=== PATIENT | male | born 1950 | race Caucasian/White ===

== ENCOUNTER 2022-04-21 09:34 | Inpatient (IN) ==
[2022-04-21] MEDS ORDERED: SODIUM CHLORIDE 0.9% 1,000 ML IV STA (10:23)
[2022-04-21 10:49] LABS: Basophils % 0.4 % (0.0-0.8); Eosinophils # 0.3 10*3/uL (0.0-0.87); Eosinophils % 4.1 % (0.00-10.9); Hematocrit 29.2 VOL% (42.0-52.0); Hemoglobin 9.1 GM/DL (14.0-18.0); Immature Granulocytes % 0.4 %; Immature Granulocytes Absolute 0.03 #; Lymphocytes # 0.6 10*3/uL (1.4-4.0); Lymphocytes % 8.5 % (21.2-54.2); Mean Corpuscular HGB Conc 31.2 GM/DL (32-36); Mean Corpuscular Volume 96.1 FL (87-102); Mean Platelet Volume 9.7 FL (9.6-12.0); Monocytes # 0.5 10*3/uL (0.11-0.8); Monocytes % 7.1 % (1.7-12.7); Neutrophils % 79.5 % (38.7-73.9); Platelet Count 236 T/CUMM (130-400); Red Blood Count 3.04 MC/CUMM (3.8-5.5); Red Cell Distribution Width 15.9 % (9.3-17.3)
[2022-04-21 11:07] LABS: Alanine Aminotransferase < 9 U/L (16-61); Alkaline Phosphatase 66 U/L (45-117); Aspartate Amino Transferase 17 U/L (0-37); Blood Urea Nitrogen 44 MG/DL (7-18); Calcium 9.7 MG/DL (8.5-10.1); Carbon Dioxide 21 MMOL/L (21-32); Chloride 104 MMOL/L (98-107); Glucose 117 MG/DL (74-106); Osmolality,Calculated 281.1 MOS/KG (273-304); Potassium 5.8 MMOL/L (3.5-5.1); Sodium 135 MMOL/L (136-145)
[2022-04-21 12:53] LABS: RBC,Urine 14705 /HPF (0-4)
[2022-04-21 12:57] LABS: Bilirubin,Urine Moderate mg/dL (Negative); Blood, Urine Large mg/dL (Negative); Glucose,Urine (UA) Negative (Negative); Ketones,Urine Trace mg/dL (Negative); Nitrite,Urine Positive (Negative); Protein,Urine >=300 mg/dL (Negative); Urine Appearance Cloudy (Clear); Urine Color Red (Yellow); Urine pH 8.5 (4.5-8.0)
[2022-04-21] MEDS ORDERED: cefTRIAXone 1,000 MG in SODIUM CHLORIDE 0.9% 100 ML IV STA (14:07)
[2022-04-21] MEDS ORDERED: ALBUTEROL 2.5 MG/3 ML NEB RESP TX PRN (14:49)
[2022-04-21] MEDS ORDERED: SIMETHICONE CHEW 125 MG TABLET PO PRN (14:49)
[2022-04-21] MEDS ORDERED: BISACODYL 5 MG TABLET PO PRN (14:49)
[2022-04-21] MEDS ORDERED: ACETAMINOPHEN 325 MG TABLET PO PRN (14:49)
[2022-04-21] MEDS ORDERED: CALCIUM CARBONATE CHEW 500 MG TABLET PO PRN (14:49)
[2022-04-21] MEDS ORDERED: LACTULOSE 20 GM/30 ML UDCUP PO PRN (14:49)
[2022-04-21] MEDS ORDERED: ALUMINUM/MAGNES/SIMETH MAX STR 30 ML UDCUP PO PRN (14:49)
[2022-04-21] MEDS ORDERED: POLYETHYLENE GLYCOL POWDER 17 GM PACK PO PRN (15:01)
[2022-04-21] MEDS ORDERED: INSULIN REGULAR 10 UNIT, CALCIUM GLUCONATE 1,000 MG in DEXTROSE 10% 250 ML IV ONE (15:06)
[2022-04-21 18:14] LABS: Calcium 8.7 MG/DL (8.5-10.1); Osmolality,Calculated 286.8 MOS/KG (273-304); Potassium 5.5 MMOL/L (3.5-5.1)
[2022-04-21] MEDS: MIDODRINE 5 MG TABLET PO SCH (20:30)
[2022-04-21] MEDS: PIPERACILLIN/TAZOBACTAM 3,375 MG in SODIUM CHLORIDE 0.9% 100 ML IV SCH (20:38)
[2022-04-22 04:51] LABS: Basophils % 0.5 % (0.0-0.8); Eosinophils # 0.3 10*3/uL (0.0-0.87); Eosinophils % 4.4 % (0.00-10.9); Hematocrit 28.2 VOL% (42.0-52.0); Hemoglobin 8.5 GM/DL (14.0-18.0); Immature Granulocytes % 0.6 %; Immature Granulocytes Absolute 0.04 #; Lymphocytes # 0.6 10*3/uL (1.4-4.0); Lymphocytes % 9.5 % (21.2-54.2); Mean Corpuscular HGB Conc 30.1 GM/DL (32-36); Mean Corpuscular Volume 97.9 FL (87-102); Mean Platelet Volume 9.7 FL (9.6-12.0); Monocytes # 0.5 10*3/uL (0.11-0.8); Platelet Count 194 T/CUMM (130-400); Red Blood Count 2.88 MC/CUMM (3.8-5.5); Red Cell Distribution Width 15.7 % (9.3-17.3); White Blood Count 6.41 T/CUMM (4-12)
[2022-04-22 05:14] LABS: Alanine Aminotransferase < 6 U/L (16-61); Albumin 2.7 G/DL (3.4-5.0); Alkaline Phosphatase 67 U/L (45-117); Aspartate Amino Transferase 17 U/L (0-37); Blood Urea Nitrogen 47 MG/DL (7-18); Calcium 9.5 MG/DL (8.5-10.1); Carbon Dioxide 19 MMOL/L (21-32); Chloride 104 MMOL/L (98-107); Glucose 115 MG/DL (74-106); Osmolality,Calculated 282.1 MOS/KG (273-304); Potassium 5.5 MMOL/L (3.5-5.1); Sodium 135 MMOL/L (136-145); Total Protein 7.4 G/DL (6.4-8.2)
[2022-04-22] MEDS ORDERED: HEPARIN 10,000 UNIT/10 ML VIAL IV PRN (08:49)
[2022-04-22 09:38] LABS: % Iron Saturation 27.5 % (18-50)
[2022-04-22 10:55] LABS: 25 Hydroxy Vitamin D Total 19.4 NG/ML (30-100); Folate 9.99 NG/ML (5.38-24.0)
[2022-04-22] MEDS: PANTOPRAZOLE 40 MG TABLET PO SCH (12:01)
[2022-04-22] MEDS: MIDODRINE 5 MG TABLET PO SCH ×3 (12:01→21:58)
[2022-04-22] MEDS: PIPERACILLIN/TAZOBACTAM 3,375 MG in SODIUM CHLORIDE 0.9% 100 ML IV SCH ×2 (12:01→21:58)
[2022-04-22] MEDS: SODIUM ZIRCONIUM CYCLOSILICATE 10 GM PACK PO SCH (12:05)
[2022-04-22] MEDS: FERROUS SULFATE 325 MG TABLET PO SCH (17:12)
[2022-04-23 04:42] LABS: Basophils % 0.5 % (0.0-0.8); Eosinophils # 0.4 10*3/uL (0.0-0.87); Eosinophils % 6.5 % (0.00-10.9); Hematocrit 26.1 VOL% (42.0-52.0); Hemoglobin 8.2 GM/DL (14.0-18.0); Immature Granulocytes % 0.2 %; Immature Granulocytes Absolute 0.01 #; Lymphocytes # 0.8 10*3/uL (1.4-4.0); Lymphocytes % 13.5 % (21.2-54.2); Mean Corpuscular HGB Conc 31.4 GM/DL (32-36); Mean Corpuscular Volume 96.3 FL (87-102); Mean Platelet Volume 9.9 FL (9.6-12.0); Monocytes # 0.6 10*3/uL (0.11-0.8); Monocytes % 9.9 % (1.7-12.7); Neutrophils % 69.4 % (38.7-73.9); Platelet Count 184 T/CUMM (130-400); Red Blood Count 2.71 MC/CUMM (3.8-5.5); Red Cell Distribution Width 15.9 % (9.3-17.3); White Blood Count 5.55 T/CUMM (4-12)
[2022-04-23 05:02] LABS: Alanine Aminotransferase < 6 U/L (16-61); Albumin 2.5 G/DL (3.4-5.0); Alkaline Phosphatase 56 U/L (45-117); Aspartate Amino Transferase 15 U/L (0-37); Blood Urea Nitrogen 29 MG/DL (7-18); Calcium 8.8 MG/DL (8.5-10.1); Carbon Dioxide 25 MMOL/L (21-32); Chloride 102 MMOL/L (98-107); Glucose 100 MG/DL (74-106); Osmolality,Calculated 275.1 MOS/KG (273-304); Potassium 4.4 MMOL/L (3.5-5.1); Sodium 135 MMOL/L (136-145)
[2022-04-23 05:31] LABS: Calcium 8.9 MG/DL (8.5-10.1); Osmolality,Calculated 275.1 MOS/KG (273-304); Potassium 4.5 MMOL/L (3.5-5.1)
[2022-04-23] MEDS: PIPERACILLIN/TAZOBACTAM 3,375 MG in SODIUM CHLORIDE 0.9% 100 ML IV SCH ×2 (10:05→21:49)
[2022-04-23] MEDS: FERROUS SULFATE 325 MG TABLET PO SCH ×2 (10:08→17:40)
[2022-04-23] MEDS: PANTOPRAZOLE 40 MG TABLET PO SCH (10:09)
[2022-04-23] MEDS: MIDODRINE 5 MG TABLET PO SCH ×3 (10:09→21:50)
[2022-04-23] MEDS: SODIUM ZIRCONIUM CYCLOSILICATE 10 GM PACK PO SCH (10:21)
[2022-04-23] MEDS: CHOLECALCIFEROL 5,000 UNIT TABLET PO SCH (17:39)
[2022-04-24] MEDS: PIPERACILLIN/TAZOBACTAM 3,375 MG in SODIUM CHLORIDE 0.9% 100 ML IV SCH ×3 (04:58→20:20)
[2022-04-24 05:24] LABS: Basophils % 0.6 % (0.0-0.8); Eosinophils # 0.5 10*3/uL (0.0-0.87); Eosinophils % 8.9 % (0.00-10.9); Hematocrit 25.3 VOL% (42.0-52.0); Hemoglobin 7.7 GM/DL (14.0-18.0); Immature Granulocytes % 0.4 %; Immature Granulocytes Absolute 0.02 #; Lymphocytes # 0.6 10*3/uL (1.4-4.0); Lymphocytes % 11.9 % (21.2-54.2); Mean Corpuscular HGB Conc 30.4 GM/DL (32-36); Mean Corpuscular Volume 96.2 FL (87-102); Mean Platelet Volume 9.9 FL (9.6-12.0); Monocytes # 0.5 10*3/uL (0.11-0.8); Monocytes % 9.1 % (1.7-12.7); Neutrophils % 69.1 % (38.7-73.9); Platelet Count 179 T/CUMM (130-400); Red Blood Count 2.63 MC/CUMM (3.8-5.5); White Blood Count 5.19 T/CUMM (4-12)
[2022-04-24 05:37] LABS: Alanine Aminotransferase < 6 U/L (16-61); Albumin 2.5 G/DL (3.4-5.0); Alkaline Phosphatase 48 U/L (45-117); Aspartate Amino Transferase 13 U/L (0-37); Bilirubin,Total < 0.39 MG/DL (0.20-1.00); Blood Urea Nitrogen 38 MG/DL (7-18); Calcium 8.7 MG/DL (8.5-10.1); Carbon Dioxide 24 MMOL/L (21-32); Chloride 103 MMOL/L (98-107); Glucose 103 MG/DL (74-106); Potassium 3.9 MMOL/L (3.5-5.1); Sodium 136 MMOL/L (136-145); Total Protein 6.9 G/DL (6.4-8.2)
[2022-04-24 05:52] LABS: Potassium 3.9 MMOL/L (3.5-5.1)
[2022-04-24] MEDS: MIDODRINE 5 MG TABLET PO SCH ×3 (10:53→20:20)
[2022-04-24] MEDS: CHOLECALCIFEROL 5,000 UNIT TABLET PO SCH (10:53)
[2022-04-24] MEDS: FERROUS SULFATE 325 MG TABLET PO SCH ×2 (10:53→17:09)
[2022-04-24] MEDS: PANTOPRAZOLE 40 MG TABLET PO SCH (10:53)
[2022-04-24] MEDS: SODIUM ZIRCONIUM CYCLOSILICATE 10 GM PACK PO SCH (10:54)
[2022-04-24] MEDS: ENOXAPARIN 80 MG/0.8 ML SYRINGE SUBCUT SCH (16:02)
[2022-04-24] MEDS: WARFARIN 5 MG TABLET PO SCH (17:10)
[2022-04-25 05:54] LABS: PT Patient Result 10.6 SECS (10.1-12.1)
[2022-04-25 06:12] LABS: Basophils % 0.2 % (0.0-0.8); Eosinophils # 0.5 10*3/uL (0.0-0.87); Eosinophils % 10.7 % (0.00-10.9); Hematocrit 22.1 VOL% (42.0-52.0); Hemoglobin 6.8 GM/DL (14.0-18.0); Immature Granulocytes % 0.4 %; Immature Granulocytes Absolute 0.02 #; Lymphocytes # 0.6 10*3/uL (1.4-4.0); Lymphocytes % 13.4 % (21.2-54.2); Mean Corpuscular HGB Conc 30.8 GM/DL (32-36); Mean Corpuscular Volume 98.2 FL (87-102); Mean Platelet Volume 9.8 FL (9.6-12.0); Monocytes # 0.4 10*3/uL (0.11-0.8); Neutrophils % 67.3 % (38.7-73.9); Platelet Count 174 T/CUMM (130-400); Red Blood Count 2.25 MC/CUMM (3.8-5.5); Red Cell Distribution Width 15.9 % (9.3-17.3); White Blood Count 4.76 T/CUMM (4-12)
[2022-04-25 06:15] LABS: Alanine Aminotransferase < 6 U/L (16-61); Albumin 2.3 G/DL (3.4-5.0); Alkaline Phosphatase 44 U/L (45-117); Aspartate Amino Transferase 15 U/L (0-37); Bilirubin,Total < 0.39 MG/DL (0.20-1.00); Blood Urea Nitrogen 25 MG/DL (7-18); Calcium 8.3 MG/DL (8.5-10.1); Carbon Dioxide 28 MMOL/L (21-32); Chloride 103 MMOL/L (98-107); Glucose 97 MG/DL (74-106); Osmolality,Calculated 278.7 MOS/KG (273-304); Sodium 138 MMOL/L (136-145)
[2022-04-25 06:25] LABS: Eosinophils 7 % (0-10); Lymphocytes 21 % (20-55); Platelet Estimate Normal; Total Cells Counted 100
[2022-04-25] MEDS ORDERED: SODIUM CHLORIDE 0.9% 1,000 ML IV PRN (06:25)
[2022-04-25 06:26] LABS: Hypochromia 2+
[2022-04-25] MEDS: PIPERACILLIN/TAZOBACTAM 3,375 MG in SODIUM CHLORIDE 0.9% 100 ML IV SCH ×2 (08:29→21:00)
[2022-04-25] MEDS: CHOLECALCIFEROL 5,000 UNIT TABLET PO SCH (09:24)
[2022-04-25] MEDS: MIDODRINE 5 MG TABLET PO SCH ×3 (09:24→20:59)
[2022-04-25] MEDS: PANTOPRAZOLE 40 MG TABLET PO SCH (09:24)
[2022-04-25] MEDS: FERROUS SULFATE 325 MG TABLET PO SCH ×2 (09:25→17:16)
[2022-04-25] MEDS: SODIUM ZIRCONIUM CYCLOSILICATE 10 GM PACK PO SCH (09:25)
[2022-04-25] MEDS: ENOXAPARIN 80 MG/0.8 ML SYRINGE SUBCUT SCH (17:16)
[2022-04-25] MEDS: WARFARIN 5 MG TABLET PO SCH (19:14)
[2022-04-26 05:22] LABS: Basophils % 0.4 % (0.0-0.8); Eosinophils # 0.7 10*3/uL (0.0-0.87); Eosinophils % 12.4 % (0.00-10.9); Hemoglobin 7.9 GM/DL (14.0-18.0); Immature Granulocytes % 0.6 %; Immature Granulocytes Absolute 0.03 #; Lymphocytes # 0.6 10*3/uL (1.4-4.0); Lymphocytes % 11.3 % (21.2-54.2); Mean Corpuscular HGB Conc 31.6 GM/DL (32-36); Mean Corpuscular Volume 96.2 FL (87-102); Mean Platelet Volume 9.7 FL (9.6-12.0); Monocytes # 0.5 10*3/uL (0.11-0.8); Monocytes % 8.8 % (1.7-12.7); Neutrophils % 66.5 % (38.7-73.9); Platelet Count 182 T/CUMM (130-400); Red Cell Distribution Width 16.4 % (9.3-17.3); White Blood Count 5.23 T/CUMM (4-12)
[2022-04-26 05:47] LABS: Alanine Aminotransferase < 6 U/L (16-61); Albumin 2.2 G/DL (3.4-5.0); Alkaline Phosphatase 43 U/L (45-117); Aspartate Amino Transferase 14 U/L (0-37); Blood Urea Nitrogen 29 MG/DL (7-18); Calcium 8.6 MG/DL (8.5-10.1); Carbon Dioxide 24 MMOL/L (21-32); Chloride 106 MMOL/L (98-107); Glucose 95 MG/DL (74-106); Osmolality,Calculated 280.7 MOS/KG (273-304); Potassium 3.9 MMOL/L (3.5-5.1); Sodium 138 MMOL/L (136-145); Total Protein 6.5 G/DL (6.4-8.2)
[2022-04-26 05:48] LABS: Eosinophils 5 % (0-10); Hypochromia Slight; Lymphocytes 10 % (20-55); Microcytosis Slight; Ovalocytes Slight; Platelet Estimate Adequate; Total Cells Counted 100
[2022-04-26] MEDS: MIDODRINE 5 MG TABLET PO SCH (09:49)
[2022-04-26] MEDS: PANTOPRAZOLE 40 MG TABLET PO SCH (09:49)
[2022-04-26] MEDS: SODIUM ZIRCONIUM CYCLOSILICATE 10 GM PACK PO SCH (09:50)
[2022-04-26] MEDS: FERROUS SULFATE 325 MG TABLET PO SCH (09:50)
[2022-04-26] MEDS: CHOLECALCIFEROL 5,000 UNIT TABLET PO SCH (09:51)
[2022-04-26] MEDS: PIPERACILLIN/TAZOBACTAM 3,375 MG in SODIUM CHLORIDE 0.9% 100 ML IV SCH (12:44)
[2022-04-26 12:49] VITALS: BP 130/76
[2022-04-26 12:49] LABS: INR 1.1; PT Patient Result 11.7 SECS (10.1-12.1)
== END 2022-04-26 13:50 | disposition home health service (06) | DRG 698 ==
LOC: N.ED 09:34 → SUATTDRO 14:49 → N.TELES 14:49
PROVIDERS: ADMIT Internal Medicine; ATTEND Internal Medicine